=== PATIENT | female | born 1990 | race Two or more races ===

== ENCOUNTER 2022-10-02 04:08 | Emergency (ER) | payer OTHER ==
[~2022-10-02] VITALS: Ht 157.5 cm; Wt 97.7 kg
[2022-10-02 04:10] VITALS: BP 142/79
[2022-10-02] MEDS ORDERED: ondansetron 4mg rapidly disintigrating tab PO ONE (04:20)
[2022-10-02] MEDS ORDERED: lisinopril 10 MG tablet PO ONE (04:35)
[2022-10-02] MEDS ORDERED: metFORMIN 500mg tablet PO ONE (04:35)
[2022-10-02] MEDS ORDERED: NPH, human insulin isophane inj. SQ SCH (04:35)
[2022-10-02] MEDS ORDERED: naproxen 500mg tablet PO ONE (05:05)
== END 2022-10-02 05:13 ==
LOC: ER 04:08
DX: M25.519 Pain in unspecified shoulder (principal); F41.9 Anxiety disorder, unspecified; E11.9 Type 2 diabetes mellitus without complications; Z90.49 Acquired absence of other specified parts of digestive tract; Z98.890 Other specified postprocedural states
CPT/HCPCS: 82948; 99283